=== PATIENT | male | born 2000 ===

== ENCOUNTER 2021-12-18 15:54 | Outpatient (REF) | payer SELFPAY ==
[2021-12-18 21:01] LABS: ALT 41 U/L (16-63); AST 27 U/L (15-37); Albumin 4.7 g/dL (3.4-5.0); Alkaline Phosphatase 100 U/L (46-116); Anion Gap 6.9 mmol/L (3-11); BUN 8 mg/dL (7-18); Bilirubin, Total 0.5 mg/dL (0.2-1.0); CO2 31.1 mmol/L (21.0-32.0); CREATININE 0.9 mg/dL (0.70-1.30); Calcium 9.6 mg/dL (8.5-10.1); Calculated LDL 114 mg/dL (<100); Chloride 102 mmol/L (98-107); Cholesterol 194 mg/dL (<200); Estimated GFR 123.07 (mL/min/1.73m2); Glucose 95 mg/dL (74-106); HDL Cholesterol 62 mg/dL (40-60); Potassium 4.1 mmol/L (3.5-5.1); Sodium 140 mmol/L (136-145); Total Protein 7.7 g/dL (6.4-8.2); Triglyceride 94 mg/dL (<150)
[2021-12-18 21:04] LABS: Hemoglobin A1C 5.6 % (<5.7)
[2021-12-20 09:23] LABS: HIV-1/2 Ag & Ab Screen Negative (Negative)
[2021-12-20 09:30] LABS: Hepatitis C Ab w Rflx HCV PCR Negative (Negative)
[2021-12-20 10:45] LABS: Alpha 1 Antitrypsin,Serum 77 mg/dL (90-200)
== END 2021-12-18 15:55 | disposition home or self-care (01) ==
LOC: NCHCN 15:54
PROVIDERS: Visit Provider Nurse Practitioner Family
DX: D89.44 Hereditary alpha tryptasemia (principal); Z11.4 Encounter for screening for human immunodeficiency virus [HIV]; Z11.59 Encounter for screening for other viral diseases; Z13.1 Encounter for screening for diabetes mellitus; Z13.220 Encounter for screening for lipoid disorders
CPT/HCPCS: 80053; 80061; 86803; 87389; 82103; 83036

== ENCOUNTER 2023-03-19 14:38 | Outpatient (REF) | payer MEDICAID, SELFPAY ==
[2023-03-19 15:59] LABS: TSH 0.61 uIU/mL (0.36-3.74); Vitamin B12 544 pg/mL (193-986)
== END 2023-03-19 14:39 | disposition home or self-care (01) ==
LOC: NCHCN 14:38
PROVIDERS: PCP Nurse Practitioner Psychiatric/Mental Health; Visit Provider Nurse Practitioner Psychiatric/Mental Health
DX: F32.89 Other specified depressive episodes (principal); Z79.899 Other long term (current) drug therapy
CPT/HCPCS: 82306; 82607; 84443